=== PATIENT | male | born 1990 | race African-American/Black ===

== ENCOUNTER → 2022-03-26 | Day surgery (SDC) | payer OTHER ==
[2022-03-24 13:30] VITALS: BMI 24.4
[~2022-03-26] MED LIST: BUPIVACAINE HCL/PF 0.25% (2.5MG/ML) 10 ML VIAL ONE; BUPIVACAINE HCL/PF 0.5% (5MG/ML) 10 ML VIAL ONE; LIDOCAINE HCL/PF 1% SDV 5ML VIAL ONE; TRIAMCINOLONE ACET 40MG/1ML VIAL ONE
== END | disposition home or self-care (01) ==
LOC: JASU-SURG 04:42
PROVIDERS: ATTEND Pain Medicine Pain Medicine
DX: Z53.8 Procedure and treatment not carried out for other reasons (principal)

== ENCOUNTER 2022-04-06 04:28 | Day surgery (SDC) | payer OTHER ==
[2022-04-01 14:24] VITALS: BMI 24.4
[2022-04-06 10:08] VITALS: RESP 18
[2022-04-06] MEDS ORDERED: BUPIVACAINE HCL/PF 0.25% (2.5MG/ML) 10 ML VIAL ONE (10:33)
[2022-04-06] MEDS ORDERED: TRIAMCINOLONE ACET 40MG/1ML VIAL ONE (10:33)
[2022-04-06] MEDS ORDERED: BUPIVACAINE HCL/PF 0.5% (5MG/ML) 10 ML VIAL IJ ONE (10:34)
[2022-04-06] MEDS ORDERED: LIDOCAINE HCL 1% PRESERVATIVE FREE - 30ML VIAL IJ ONE (10:35)
[2022-04-06] MEDS ORDERED: TRIAMCINOLONE ACETONIDE 40 MG/ML 10 ML VIAL IJ ONE (10:35)
[2022-04-06] MEDS ORDERED: IOHEXOL 180 MG/1 ML ML IJ ONE (10:36)
[2022-04-06 11:28] VITALS: PULSE 50
[2022-04-06 11:51] VITALS: BP 124/86; TEMP 97.7
== END 2022-04-06 11:52 | disposition home or self-care (01) ==
LOC: JASU-SURG 04:28
PROVIDERS: ATTEND Pain Medicine Pain Medicine
PROC: 3E0U33Z Introduction of Anti-inflammatory into Joints, Percutaneous Approach (ICD-10-PCS; 2022-04-06)
PROC: 3E0U3BZ Introduction of Anesthetic Agent into Joints, Percutaneous Approach (ICD-10-PCS; principal; 2022-04-06 11:00)
DX: M16.11 Unilateral primary osteoarthritis, right hip (principal)
CPT/HCPCS: 76000-TC-FY

== ENCOUNTER 2022-06-04 09:16 | Day surgery (SDC) | payer OTHER ==
[2022-06-02 11:38] VITALS: BMI 25.0
[2022-06-04] MEDS ORDERED: BUPIVACAINE HCL/PF 0.25% (2.5MG/ML) 10 ML VIAL ONE (11:14)
[2022-06-04] MEDS ORDERED: DEXAMETHASONE SOD PHOSPHATE 10 MG/1 ML VIAL ONE (12:11)
[2022-06-04] MEDS ORDERED: MIDAZOLAM HCL 2 MG/2 ML SINGLE DOSE VIAL ONE (12:11)
[2022-06-04] MEDS ORDERED: ROPIVACAINE HCL 0.5% 30ML VIAL ONE (12:12)
[2022-06-04] MEDS ORDERED: PROPOFOL 40 ML ONE (12:27)
[2022-06-04] MEDS ORDERED: ceFAZolin SODIUM 1 GM VIAL ONE (13:06)
[2022-06-04] MEDS ORDERED: ROCURONIUM BROMIDE 50 MG/5 ML SYRINGE ONE (13:17)
[2022-06-04] MEDS ORDERED: DEXAMETHASONE SOD PHOSPHATE 4 MG/1 ML VIAL ONE (13:25)
[2022-06-04] MEDS ORDERED: ONDANSETRON 4 MG/2 ML VIAL ONE (13:25)
[2022-06-04] MEDS ORDERED: NEOSTIGMINE METHYLSULFATE 0.5 MG/1 ML - 10 ML MDV ONE (13:56)
[2022-06-04] MEDS ORDERED: SEVOFLURANE 250 ML BTL ONE (14:26)
[2022-06-04] MEDS ORDERED: SUCCINYLCHOLINE CHLORIDE 200 MG/10 ML SYRINGE ONE (15:24)
[2022-06-04] MEDS ORDERED: oxyCODONE HCL 5 MG TABLET PO PRN ×2 (15:49)
[2022-06-04] MEDS ORDERED: ONDANSETRON 4 MG/2 ML VIAL IVPUSH PRN (15:49)
[2022-06-04] MEDS ORDERED: ACETAMINOPHEN 1000 MG/100 ML BAG IVPB PRN (15:53)
[2022-06-04 17:33] VITALS: PULSE 61; RESP 18; TEMP 97.7
[2022-06-04 18:44] VITALS: BP 131/74
== END 2022-06-04 18:47 | disposition home or self-care (01) ==
LOC: FASU 09:16
PROVIDERS: ATTEND Orthopaedic Surgery Sports Medicine
PROC: 0SB94ZZ Excision of Right Hip Joint, Percutaneous Endoscopic Approach (ICD-10-PCS; 2022-06-04)
PROC: 0QR40JZ Replacement of Right Acetabulum with Synthetic Substitute, Open Approach (ICD-10-PCS; 2022-06-04)
PROC: 0SQ94ZZ Repair Right Hip Joint, Percutaneous Endoscopic Approach (ICD-10-PCS; principal; 2022-06-04 13:43)
DX: S73.191A Other sprain of right hip, initial encounter (principal); M25.851 Other specified joint disorders, right hip; M65.9 Synovitis and tenosynovitis, unspecified; X58.XXXA Exposure to other specified factors, initial encounter; Y93.9 Activity, unspecified; Y92.9 Unspecified place or not applicable
CPT/HCPCS: 73502-TC-RT-FY; 94760; J1100

== ENCOUNTER → 2024-02-07 | Day surgery (SDC) | payer OTHER | END | disposition home or self-care (01) | LOC: JRADIR 09:09 | PROVIDERS: ATTEND Orthopaedic Surgery Sports Medicine | PROC: BQ31YZZ Magnetic Resonance Imaging (MRI) of Left Hip using Other Contrast (ICD-10-PCS; principal; 2024-02-07) | DX: M25.552 Pain in left hip (principal) | CPT/HCPCS: 27093; 27095; 73525-TC-FY; 73722-TC; 77002-TC-FY ==

== ENCOUNTER 2024-04-05 04:58 | Day surgery (SDC) | payer OTHER ==
[2024-04-04 13:22] VITALS: BMI 25.0
[2024-04-05] MEDS ORDERED: BUPIVACAINE HCL/PF 0.5% (5MG/ML) 10 ML VIAL ONE (07:25)
[2024-04-05] MEDS ORDERED: BUPIVACAINE HCL/PF 0.75% 10 ML VIAL ONE (07:25)
[2024-04-05] MEDS ORDERED: TRIAMCINOLONE ACET 40MG/1ML VIAL ONE (07:25)
[2024-04-05] MEDS: LIDOCAINE HCL 1% PRESERVATIVE FREE - 30ML VIAL IJ ONE (13:56)
[2024-04-05] MEDS: IOHEXOL 180 MG/1 ML ML IJ ONE ×2 (13:57)
[2024-04-05] MEDS: BUPIVACAINE HCL/PF 2.5 MG/ML - 30 ML VIAL IJ ONE (13:58)
[2024-04-05 14:01] VITALS: RESP 18
[2024-04-05 14:27] VITALS: BP 115/82; PULSE 54; TEMP 98.4
== END 2024-04-05 14:17 | disposition home or self-care (01) ==
LOC: JASU-SURG 04:58
PROVIDERS: ATTEND Pain Medicine Pain Medicine
PROC: 3E0U3BZ Introduction of Anesthetic Agent into Joints, Percutaneous Approach (ICD-10-PCS; 2024-04-05)
PROC: 3E0U33Z Introduction of Anti-inflammatory into Joints, Percutaneous Approach (ICD-10-PCS; principal; 2024-04-05 13:56)
DX: M25.552 Pain in left hip (principal)
CPT/HCPCS: 76000-TC-FY; 77002-TC-FY

== ENCOUNTER 2024-07-03 09:57 | Day surgery (SDC) | payer OTHER ==
[2024-07-02 09:36] VITALS: BMI 25.0
[2024-07-03] MEDS ORDERED: BUPIVACAINE HCL/PF 2.5 MG/ML - 30 ML VIAL IJ ONE (11:27)
[2024-07-03] MEDS ORDERED: MIDAZOLAM HCL 2 MG/2 ML SINGLE DOSE VIAL ONE (11:53)
[2024-07-03] MEDS ORDERED: PROPOFOL 40 ML ONE (11:53)
[2024-07-03] MEDS ORDERED: ROCURONIUM BROMIDE 50 MG/5 ML SYRINGE ONE (11:55)
[2024-07-03] MEDS ORDERED: ACETAMINOPHEN INJECTION 100 ML ONE (11:58)
[2024-07-03] MEDS ORDERED: BUPIVACAINE HCL/PF 0.5% (5 MG/ML) 30 ML VIAL IJ ONE (12:00)
[2024-07-03] MEDS ORDERED: DEXMEDETOMIDINE HCL 200 MCG/2 ML IVPB ONE (12:00)
[2024-07-03] MEDS ORDERED: DEXAMETHASONE SOD PHOSPHATE 4 MG/1 ML VIAL ONE (15:35)
[2024-07-03] MEDS ORDERED: ONDANSETRON 4 MG/2 ML VIAL ONE ×2 (15:35→17:24)
[2024-07-03] MEDS ORDERED: KETOROLAC TROMETHAMINE 30 MG/1 ML VIAL ONE (17:25)
[2024-07-03] MEDS ORDERED: ONDANSETRON 4 MG/2 ML VIAL IVPUSH PRN (17:44)
[2024-07-03] MEDS ORDERED: LACTATED RINGERS SOLUTION 1,000 ML IV SCH (17:45)
[2024-07-03 17:52] VITALS: RESP 16
[2024-07-03] MEDS ORDERED: FENTANYL CITRATE/PF 50 MCG/ML VIAL ONE ×3 (17:57→18:10)
[2024-07-03] MEDS ORDERED: oxyCODONE HCL 5 MG TABLET ONE ×2 (18:23→18:48)
[2024-07-03] MEDS: oxyCODONE HCL 5 MG TABLET PO PRN (18:25)
[2024-07-03] MEDS: oxyCODONE HCL 5 MG TABLET PO ONE (18:50)
[2024-07-03 18:53] VITALS: TEMP 97.8
[2024-07-03 19:56] VITALS: BP 133/76; PULSE 75
== END 2024-07-03 21:40 | disposition home or self-care (01) ==
LOC: FASU 09:57
PROVIDERS: ATTEND Orthopaedic Surgery Sports Medicine
PROC: 0QB54ZZ Excision of Left Acetabulum, Percutaneous Endoscopic Approach (ICD-10-PCS; 2024-07-03)
PROC: 0SBB4ZZ Excision of Left Hip Joint, Percutaneous Endoscopic Approach (ICD-10-PCS; 2024-07-03)
PROC: 0SQB4ZZ Repair Left Hip Joint, Percutaneous Endoscopic Approach (ICD-10-PCS; principal; 2024-07-03 15:40)
DX: S73.192A Other sprain of left hip, initial encounter (principal); M25.852 Other specified joint disorders, left hip; M65.852 Other synovitis and tenosynovitis, left thigh; X58.XXXA Exposure to other specified factors, initial encounter; Y93.9 Activity, unspecified; Y92.9 Unspecified place or not applicable
CPT/HCPCS: 29914; 29916; C1713; 73502-TC-LT-FY; 94760; J0131